=== PATIENT | male | born 1960 | race Caucasian/White ===

== ENCOUNTER 2023-06-18 14:40 | Emergency (ER) | payer BC, OTHER ==
[2023-06-18] MEDS ORDERED: Lisinopril 10 MG TAB ONE (15:17)
== END 2023-06-18 15:34 | disposition home or self-care (01) ==
LOC: MADERS 14:40
DX: J06.9 Acute upper respiratory infection, unspecified (principal); I10 Essential (primary) hypertension; H60.91 Unspecified otitis externa, right ear; E11.9 Type 2 diabetes mellitus without complications; E78.5 Hyperlipidemia, unspecified; Z79.84 Long term (current) use of oral hypoglycemic drugs; Z79.899 Other long term (current) drug therapy
CPT/HCPCS: 99283